=== PATIENT | male | born 1980 | race American Indian/Alaskan Native ===

== ENCOUNTER 2018-02-02 19:55 | Emergency (ER) | payer SELFPAY ==
[2018-02-02 20:09] VITALS: BP 126/78
[2018-02-02 20:27] LABS: Basophils % (Auto) 0.6 % (0.0-1.8); Eosinophils # (Auto) 0.1 K/mm3 (0.0-0.4); Eosinophils % (Auto) 1.6 % (0.0-4.3); Hematocrit 40.7 % (35.5-45.6); Hemoglobin 12.7 gm/dl (11.8-15.2); Lymphocytes # (Auto) 2.3 K/mm3 (1.2-5.4); Lymphocytes % (Auto) 30.6 % (13.4-35.0); Mean Corpuscular HGB Conc 31 % (32-34); Mean Corpuscular Volume 82 fl (84-94); Monocytes # (Auto) 0.5 K/mm3 (0.0-0.8); Monocytes % (Auto) 7.1 % (0.0-7.3); Platelet Count 195 K/mm3 (140-440); Red Blood Count 4.95 M/mm3 (3.65-5.03); Red Cell Distribution Width 13.8 % (13.2-15.2)
[2018-02-02 20:37] LABS: BUN/Creatinine Ratio 17; Blood Urea Nitrogen 12 mg/dL (9-20); Calcium 8.5 mg/dL (8.4-10.2); Hemolysis Index 5
[2018-02-02 20:49] LABS: Mean Corpuscular Hemoglobin 26 pg (28-32)
--- NOTE | 2018-02-03 01:04 | Emergency Department Report ---
- General Chief complaint: Skin/Abscess/Foreign Body Stated complaint: RIGHT LEG SORE Time Seen by Provider: 02/02/18 23:56 Source: patient Mode of arrival: Ambulatory Limitations: No Limitations - History of Present Illness Initial comments: Patient is 37 years old male with no significant past medical history For Evaluation of Wound to the Right Thigh That Started 3 Days Ago Patient Stated That Started As Small Boil and He Went Ahead and Put Some Heating That's When It Didn't Help with the Pain Patient Now Is Coming with a Second-Degree Burn with Blisters. Burn area is around upon the plan itself is not fluctuant. Patient denied any fever, nausea or vomiting. MD complaint: abscess/boil -: days(s) Tetanus Up to Date: yes Location: [facility] Severity scale (0 -10): 3 Quality: burning Associated symptoms: denies other symptoms - Related Data Previous Rx's Medication Instructions Recorded Last Taken Type Acetaminophen/Codeine [Tylenol #3] 1 tab PO Q6H PRN #10 tab 08/31/16 Unknown Rx Cephalexin [Keflex] 500 mg PO Q6HR #10 capsule 08/31/16 Unknown Rx Allergies Allergy/AdvReac Type Severity Reaction Status Date / Time No Known Allergies Allergy Unverified 08/28/15 13:18 Abscess Boil HPI - HPI Chief Complaint: Skin/Abscess/Foreign Body Stated Complaint: RIGHT LEG SORE Time Seen by Provider: 02/02/18 23:56 Home Medications: Previous Rx's Medication Instructions Recorded Last Taken Type Acetaminophen/Codeine [Tylenol #3] 1 tab PO Q6H PRN #10 tab 08/31/16 Unknown Rx Cephalexin [Keflex] 500 mg PO Q6HR #10 capsule 08/31/16 Unknown Rx Allergies/Adverse Reactions: Allergies Allergy/AdvReac Type Severity Reaction Status Date / Time No Known Allergies Allergy Unverified 08/28/15 13:18 ED Review of Systems ROS: Stated complaint: RIGHT LEG SORE Other details as noted in HPI Comment: All other systems reviewed and negative Constitutional: denies: chills, fever Respiratory: denies: cough Cardiovascular: denies: chest pain, palpitations Gastrointestinal: denies: nausea, vomiting Skin: lesions Neurological: denies: headache, weakness ED Past Medical Hx - Past Medical History Previous Medical History?: No - Surgical History Past Surgical History?: No - Social History Smoking Status: Light Tobacco Smoker Substance Use Type: Alcohol - Medications Home Medications: Home Medications Medication Instructions Recorded Confirmed Last Taken Type Acetaminophen/Codeine [Tylenol #3] 1 tab PO Q6H PRN #10 tab 08/31/16 Unknown Rx Cephalexin [Keflex] 500 mg PO Q6HR #10 capsule 08/31/16 Unknown Rx ED Physical Exam - General Limitations: No Limitations General appearance: alert, in no apparent distress - Head Head exam: Present: atraumatic, normocephalic - Neck Neck exam: Present: normal inspection. Absent: tenderness, meningismus - Respiratory Respiratory exam: Present: normal lung sounds bilaterally - Cardiovascular Cardiovascular Exam: Present: regular rate, normal heart sounds - GI/Abdominal GI/Abdominal exam: Present: soft. Absent: tenderness - Extremities Exam Extremities exam: Present: other (4x4 cm second degree burn with small area of cellulitis.) ED Course Vital Signs 02/02/18 20:05 Temperature 97.7 F Pulse Rate 75 Respiratory 18 Rate Blood Pressure 126/78 O2 Sat by Pulse 98 Oximetry ED Medical Decision Making - Lab Data Result diagrams: 02/02/18 20:19 02/02/18 20:19 Critical care attestation.: If time is entered above; I have spent that time in minutes in the direct care of this critically ill patient, excluding procedure time. ED Disposition Clinical Impression: Cellulitis, Second degree burn Disposition: DC-01 TO HOME OR SELFCARE Is pt being admited?: No Condition: Stable Instructions: Superficial Burn (ED), Cellulitis (ED) Referrals: PRIMARY CARE, [Primary Care Provider] - 3-5 Days
== END 2018-02-03 01:57 | disposition home or self-care (01) ==
LOC: ED 19:55
DX: L03.90 Cellulitis, unspecified (principal); T24.211A Burn of second degree of right thigh, initial encounter; X16.XXXA Contact with hot heating appliances, radiators and pipes, initial encounter; Y93.89 Activity, other specified; Y92.89 Other specified places as the place of occurrence of the external cause; Y99.8 Other external cause status
CPT/HCPCS: 36415; 80048; 85025; 99283